=== PATIENT | male | born 1955 | race Caucasian/White ===

== ENCOUNTER 2024-09-08 14:36 | Emergency (ER) | payer MEDICARE, MEDICAID, SELFPAY ==
[2024-09-08 15:02] VITALS: BP 159/95; PULSE 96; RESP 18; TEMP 37.1; O2SAT 95; BMI 35.4
--- NOTE | 2024-09-08 15:09 | EDNOTE_ITS ---
ED Eye Problem RME/HPI General Chief complaint: Eye Problems Stated complaint: LEFT EYE PAIN Time Seen by Provider: 09/08/24 14:49 Source: patient Arrival date/time: 09/08/24 14:36 69-year-old male with no known medical history presents to the emergency room with a chief complaint of irritation and pain to his left eye after cutting wood and getting struck in the eye this morning. Mode of arrival: ambulatory Limitations: no limitations Related Data Previous Rx's ?Medication ?Instructions ?Recorded ciprofloxacin HCl 0.3 % eye drops See Rx Instructions ophthalmic 09/08/24 (eye) .COMPLEX #5 mL Allergies Allergy/AdvReac Type Severity Reaction Status Date / Time NKA Allergy Uncoded 09/08/24 14:39 Review of Systems Review of Systems Systems Reviewed: All systems reviewed, normal except as documented Constitutional Constitutional: Reports system reviewed and no additional complaints, except as documented, Denies fatigue, Denies fever(s), Denies headache(s) and Denies weakness Eyes Eyes: Reports system reviewed and no additional complaints, except as documented, Reports blurry vision, Denies change in vision, Denies diplopia, Reports eye discharge, Denies dry eyes, Denies exophthalmos, Denies floaters, Reports irritation, Denies itchy eyes, Denies loss of vision, Reports eye pain, Denies photophobia, Denies spots in vision and Denies tunnel vision ENT Ears, Nose, Mouth, and Throat: Reports system reviewed and no additional complaints, except as documented, Denies otalgia, Denies headache(s), Denies nasal congestion, Denies throat swelling and Denies vertigo Cardiovascular Cardiovascular: Reports system reviewed and no additional complaints, except as documented, Denies chest pain, Denies dyspnea and Denies dyspnea on exertion Respiratory Respiratory: Reports system reviewed and no additional complaints, except as documented, Denies chest congestion, Denies cough, Denies dyspnea, Denies dyspnea on exertion and Denies wheezing Gastrointestinal Gastrointestinal: Reports system reviewed and no additional complaints, except as documented, Denies abdominal pain, Denies cramping, Denies nausea and Denies vomiting Genitourinary Genitourinary: Reports system reviewed and no additional complaints, except as documented, Denies dysuria and Denies hematuria Musculoskeletal Musculoskeletal: Reports system reviewed and no additional complaints, except as documented and Denies back pain Integumentary/Breasts Skin/Breast: Reports system reviewed and no additional complaints, except as documented and Denies wounds Neurologic Neurologic: Reports system reviewed and no additional complaints, except as documented, Denies confusion, Denies headache(s), Denies lack of coordination, Denies loss of vision, Denies vertigo and Denies weakness Psychiatric Psychiatric: Reports system reviewed and no additional complaints, except as documented, Denies anxiety, Denies confusion, Denies depression, Denies paranoia, Denies suicidal ideation and Denies tactile hallucinations Endocrine Endocrine: Reports system reviewed and no additional complaints, except as documented and Denies fatigue Hematologic/Lymphatic Hematologic/Lymphatic: Reports system reviewed and no additional complaints, except as documented and Denies lymphadenopathy Allergic/Immunologic Allergic/Immunologic: Reports system reviewed and no additional complaints, except as documented, Denies itchy eyes, Denies throat swelling, Denies urticaria and Denies wheezing ED Exam General Limitations: Present no limitations Course Quality Measures none Orders Category Date Time Status Visual Acuity X1 Care 09/08/24 15:08 Active Hutchins Lamp to Bedside X1 Care 09/08/24 15:08 Active Fluorescein Sodium [[id number]] Med 09/08/24 15:08 Discontinued 1 mg LEFT EYE X1 ONE HYDROcodone*/APAP 5/325 [[place] 5/325] Med 09/08/24 15:46 Once 1 tab PO X1 ONE TET,DIP/PERT AC (Adult)-Tdap [Boostrix Adult (Tdap) Med 09/08/24 15:46 Once Vacc] 0.5 ml IMI .ONCE ONE TETRACAINE Op Debra 0.5% [Pontocaine Op Debra 0.5%] Med 09/08/24 15:08 Discontinued 1 drop LEFT EYE X1 ONE Vital Signs Vital signs: Vital Signs Temperature 98.7 F 09/08/24 15:02 Pulse Rate 96 09/08/24 15:02 Respiratory Rate 18 09/08/24 15:02 Blood Pressure 159/95 H 09/08/24 15:02 Pulse Oximetry (%) 95 09/08/24 15:02 Oxygen Delivery Method Room Air 09/08/24 15:02 O2 saturation 95% within normal limits Procedures -ED Hutchins Lamp Exam Left eye: Flourescein uptake:: Yes Hutchins Lamp Findings: Corneal abrasion Eye MDM Narrative MDM Narrative:: 69-year-old male with no known medical history presents to the emergency room with a chief complaint of irritation and pain to his left eye after cutting wood and getting struck in the eye this morning. Physical examination shows tenderness and irritation to the patient's left eye. There is a subconjunctival hemorrhage. It was lamp examination was completed and there is multiple corneal abrasions but there is no corneal ulceration. Antibiotics are sent to the patient's pharmacy. The patient was educated to follow-up with his primary care provider for referral to an quality control tech for further management of this injury. Patient was discharged and educated to follow-up with primary care provider in the next 24 to 48 hours and return to the emergency room for any evidence of worsening signs or symptoms Patient data External records reviewed:: [facility] previous records Clinical information provided by:: patient Social determinants that could affect healthcare access:: none Patient has the following chronic illnesses:: No chronic illness How is presenting disease/condition affected by chronic disease/condition?: no chronic disease Evaluation data The following diagnostics were reviewed and interpreted by me:: lab results and radiology exam(s) Lab and/or radiology exams considered but not ordered:: Labs and radiology exams considered in order Interpretation Summary: N/A Medications / Prescriptions Medications or Prescriptions considered but not ordered:: medication given Medication administrations:: Medication Administration History Hydrocodone Bitart/Acetaminophen (Hydrocodone/Apap 5/325 Tablet) 1 tab PO X1 ONE Stop: 09/08/24 15:47 Diphtheria/Tetanus/Acell Pertussis (Diphth,Pertuss(Acell),Tet Vac 0.5 Ml Syr- Adult) 0.5 ml IMi .ONCE ONE Stop: 09/08/24 15:47 Discontinued Medications Fluorescein Sodium (Fluorescein Sod 1 Mg Strp) 1 mg LEFT EYE X1 ONE Stop: 09/08/24 15:09 Last Admin: 09/08/24 15:17 Dose: 1 mg Documented By: KRISTIE Tetracaine HCl (Tetracaine Pf Op Debra 0.5% 4 Ml Drpette) 1 drop LEFT EYE X1 ONE Stop: 09/08/24 15:09 Last Admin: 09/08/24 15:16 Dose: 1 drop Documented By: KRISTIE Medication given Consultations Consultation(s) initiated? (list below): No Diagnosis Eye Problem Differential Diagnosis: corneal abrasion, conjunctivitis, acute iritis, subconjunctival hemorrhage, corneal ulcer and ruptured globe Most likely diagnosis given after review of the tests above:: Corneal abrasion Admission Indicated Admission indicated?: not indicated Admission Request Was there a request for admission?: No Disposition Plan Disposition Plan: Discharge Discharge Attestation Discharge Attestation: The patient and all family members were given an opportunity to ask questions and understood the discharge instructions. Discharge instructions specifically effects, indications for sooner follow up or return to the emergency department, and the expected course of current diagnosis. Patient condition: Stable Discharge Plan Plan Patient Disposition: HOME (Self Care) Disposition Comment: Stable Prescriptions/Referrals Prescriptions/Med Rec: New ciprofloxacin HCl 0.3 % drops See Rx Instructions .ROUTE .COMPLEX Qty: 5 0RF Rx Instructions: put 1-2 drps in affected eye(s) every 2hr up to 8 times/day x2days; then 4 times/day x5days Problem List Clinical Impression: Corneal abrasion Patient/Caregiver Discharge Instructions Education Materials: Corneal Injury, ED Corneal Abrasion Additional Instructions: Please follow-up with your primary care provider in the next 24 to 48 hours. You will need to follow-up with your primary care provider for referral to an quality control tech for further management of this injury. Antibiotics are sent to your pharmacy please pick them up and take them as indicated. For any evidence of worsening signs or symptoms return to the emergency room immediately Print Language: Arabic Stand Alone Forms: Diana Award Info., Patient Portal Info Letter [place] Supervising Physician [place] Supervising Physician: Dr. Hoyt
[2024-09-08] MEDS: TETRACAINE PF OP SOL 0.5% 4 ML DRPETTE 1 DROP LEFT EYE (15:16)
[2024-09-08] MEDS: FLUORESCEIN SOD 1 MG STRP LEFT EYE (15:17)
[2024-09-08] MEDS: DIPHTH,PERTUSS(ACELL),TET VAC 0.5 ML SYR- ADULT IMi (16:05)
[2024-09-08] MEDS: HYDROcodone/APAP 5/325 TABLET 1 TAB PO (16:06)
== END 2024-09-08 16:13 | disposition home or self-care (01) ==
LOC: SERX 16:18
PROVIDERS: Emergency Provider Family Medicine; PCP Internal Medicine
DX: S05.02XA Injury of conjunctiva and corneal abrasion without foreign body, left eye, initial encounter (principal); W22.8XXA Striking against or struck by other objects, initial encounter; Y93.89 Activity, other specified; Z23 Encounter for immunization
CPT/HCPCS: 90471; 90715; 99283; A9270